=== PATIENT | male | born 1975 | race African-American/Black ===

== ENCOUNTER 2016-09-18 08:18 | Emergency (ER) | payer BC ==
--- NOTE | ~2016-09-18 | CR150 ---
[facility] A Service of [facility] & [facility] RADIOLOGY TEXT RESULTS PATIENT: DERICK AMBROSIO LOCATION: [facility] : 73 UNIT #: [id number] AGE: [address]: Jess Barillas APRN SEX: M ORDER DR: [id number] [facility] [address] [place], [place] [address] [id number] E MR#: [id number] Acc #: [id number] NAME: DERICK AMBROSIO : 1975 SEX: M STUDY DATE/TIME: 09/18/2016 8:39 UNIT: [facility] ROOM: STUDY DESCRIPTION: CR Hip Min 2 Views Lt Attending Physician: Jess Barillas A.P.R.N. Ordering Physician: Ed Corey Burns M.D. Primary Care Physician: Primary Care Physician No MEDICAL IMAGING REPORT This report is preliminary unless electronic signature is present EXAM Left hip 2 views HISTORY 40-year-old male with left hip pain for 1 year COMPARISON There are no comparisons FINDINGS There is post surgical change of the left hip. There is no acute fracture or dislocation. IMPRESSION Post surgical changes of the left hip. No acute fracture. Dictated by... Trsiten Barone M.D. THIS IS AN ELECTRONICALLY VERIFIED REPORT Tristen Barone M.D. at 09/18/2016 4:32 PM ARS/to TD: 09/18/2016 11:32 JOB #: [id number] MEDICAL IMAGING REPORT Page 1 of 1 COPY
--- NOTE | ~2016-09-18 | CR169 ---
[facility] A Service of [facility] RADIOLOGY TEXT RESULTS PATIENT: DERICK AMBROSIO LOCATION: [facility] : 73 UNIT #: [id number] AGE: [address]: Jess Barillas APRN SEX: M ORDER DR: [id number] [facility] [address] [place], [place] [address] [id number] E MR#: [id number] Acc #: [id number] NAME: DERICK AMBROSIO. : 1975 SEX: M STUDY DATE/TIME: 09/18/2016 8:37 UNIT: [facility] ROOM: STUDY DESCRIPTION: CR Knee 2 Views Lt Attending Physician: Jess Barillas A.P.R.N. Ordering Physician: Sunil Ramos M.D. Primary Care Physician: Primary Care Physician No MEDICAL IMAGING REPORT This report is preliminary unless electronic signature is present EXAM Left knee 2 views 09/18/2016 08:37 HISTORY History sheet states left medial knee pain for 1 year. No trauma. COMPARISON None. FINDINGS There is evidence of a prior ACL reconstruction with femoral and tibial tunnels and a small fixation metallic device adjacent to the lateral femoral distal shaft cortex. There is tricompartmental arthrosis. Medial and lateral joint space narrowing with osteophyte formation are noted. There is a near wdbs-[id number]-roux appearance medially (images are not weightbearing) with subarticular cystic lucencies. The bones appear mildly demineralized. There is no fracture or calcified loose body. No effusion is noted. IMPRESSION 1. 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 2. No acute findings or fracture. 3. Evidence of previous ACL reconstruction. Dictated by... Evangelina Almazan M.D. THIS IS AN ELECTRONICALLY VERIFIED REPORT [facility] A Service of [facility] & [facility] RADIOLOGY TEXT RESULTS PATIENT: DERICK AMBROSIO LOCATION: [facility] : 73 UNIT #: [id number] AGE: [address]: Jess Barillas CASHIER SEX: M ORDER DR: Evangelina Almazan M.D. at 09/18/2016 2:01 PM CHITO/nirmal TD: 09/18/2016 11:14 JOB #: [id number] MEDICAL IMAGING REPORT Page 1 of 1 COPY
[~2016-09-18 08:18] MED LIST: NAPROSYN250 M1 PO; PEN-VEE K PO; VOLTAREN75 MG PO
== END 2016-09-18 09:58 | disposition home or self-care (01) ==
LOC: CED 08:18
DX: M25.552 Pain in left hip (principal); M25.562 Pain in left knee
CPT/HCPCS: 29505; 73502; 73560; 99284

== ENCOUNTER → 2016-09-26 | Outpatient (CLI) | payer BC ==
--- NOTE | ~2016-09-26 | XA30 ---
[facility] A Service of [facility] & [facility] RADIOLOGY TEXT RESULTS PATIENT: DERICK AMBROSIO LOCATION: [facility] : 73 UNIT #: [id number] AGE: [address]: Cal Harrison MD SEX: M ORDER DR: [id number] [place] [id number] [facility] [place], [place] [address] [id number] O MR#: [id number] Acc #: [id number] NAME: DERICK AMBROSIO : 1975 SEX: M STUDY DATE/TIME: 09/26/2016 7:58 UNIT: [facility] ROOM: STUDY DESCRIPTION: XA Arthrocentesis Major Joint Attending Physician: Cal Harrison M.D. Ordering Physician: Cal Harrison M.D. Primary Care Physician: Primary Care Physician No MEDICAL IMAGING REPORT This report is preliminary unless electronic signature is present EXAM Fluoroscopically guided left hip injection INDICATION Left hip pain. This patient has a history of left acetabular fracture and has had hip pain for 1 year. FINDINGS The procedure, risks, benefits, and alternatives to the procedure were explained to the patient, and signed, informed consent was obtained. He was placed supine on the angiographic table. He was prepped and draped in usual sterile fashion. Time-out was performed as per protocol. Skin and subcutaneous tissues were anesthetized with buffered lidocaine. A 22-gauge spinal needle was advanced into the joint space. Contrast was injected which confirmed location within the joint space. I thin instilled a combination of lidocaine, bupivacaine and Depo-Medrol. The needle was then removed and manual pressure was applied until hemostasis was obtained. Patient tolerated the procedure well and there were no immediate complications. Total fluoroscopy time was 0.3 minutes. AK was 8 mGy. IMPRESSION Technically successful fluoroscopically guided left hip injection as noted above. Fluoroscopy was used to the procedure and permanent images were saved. Dictated by... Karen Rodriguez M.D. THIS IS AN ELECTRONICALLY VERIFIED REPORT Karen Rodriguez M.D. at 09/29/2016 5:08 PM AFF/jw [facility] A Service of [facility] & [facility] RADIOLOGY TEXT RESULTS PATIENT: DERICK AMBROSIO LOCATION: [facility] #: [id number] : [birth year] UNIT #: [id number] AGE: [address]: Cal Harrison MD SEX: M ORDER DR: TD: 09/29/2016 10:53 JOB #: [id number] MEDICAL IMAGING REPORT Page 1 of 1 COPY
== END | disposition home or self-care (01) ==
LOC: CIVR 07:31
PROC: 3E0U33Z Introduction of Anti-inflammatory into Joints, Percutaneous Approach (ICD-10-PCS; principal; 2016-09-26)
PROC: 3E0U3BZ Introduction of Anesthetic Agent into Joints, Percutaneous Approach (ICD-10-PCS; 2016-09-26)
DX: M25.552 Pain in left hip (principal); M19.90 Unspecified osteoarthritis, unspecified site
CPT/HCPCS: 77002; J1030; Q9966